=== PATIENT | male | born 1965 | race Caucasian/White ===

== ENCOUNTER 2021-03-30 04:16 | Emergency (ER) | payer SELFPAY ==
[~2021-03-30] VITALS: Ht 188 cm; Wt 139.0 kg
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
[2021-03-30] MEDS ORDERED: IV RINGERS SOLUTION,LACTATED 1,000 ML IV SCH (05:00)
[2021-03-30] MEDS ORDERED: DIPH,PERTUSS(ACELL),TET VAC/PF 0.5 ML SYRINGE. VAX IM ONE (05:00)
--- NOTE | 2021-03-30 05:00 | EKG ---
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
[2021-03-30] MEDS ORDERED: CONTRAST GIVEN. MC PRN (05:15)
[2021-03-30] MEDS ORDERED: IOHEXOL 300 MG/ML 75 ML VIAL. IV ONE (05:30)
[2021-03-30 05:39] LABS: BASO % 0 % (0-3); EOS % 0 % (0-3); HEMATOCRIT 37.7 % (39.0-53.0); HEMOGLOBIN 12.5 g/dL (13.0-17.5); LYMPH % 9 % (24-48); MEAN CORPUSCULAR HEMOGLOBIN 33 pg (25-35); MEAN CORPUSCULAR HGB CONC 33 g/dL (31-37); MEAN CORPUSCULAR VOLUME 99 fL (79-100); MONO % 9 % (0-9); NEUT # 9.3 x10^3uL (1.8-7.7); NEUT % 82 % (31-73); PLATELET COUNT 260 x10^3/uL (140-400); RED BLOOD COUNT 3.82 x10^6/uL (4.30-5.70); RED CELL DISTRIBUTION WIDTH 12.9 % (11.5-14.5); WHITE BLOOD COUNT 11.3 x10^3/uL (4.0-11.0)
[2021-03-30 05:57] LABS: CALCIUM 8.7 mg/dL (8.5-10.1); CREATININE 1.9 mg/dL (0.7-1.3); GFR 36.7; POTASSIUM 4.3 mmol/L (3.5-5.1)
[2021-03-30 06:12] LABS: ALBUMIN 3.8 g/dL (3.4-5.0); DIRECT BILIRUBIN 0.1 mg/dL (0.0-0.2); MAGNESIUM 2.5 mg/dL (1.8-2.4); TOTAL BILIRUBIN 0.2 mg/dL (0.2-1.0); TOTAL PROTEIN 7.3 g/dL (6.4-8.2)
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
[2021-03-30] MEDS ORDERED: HYDR-2155 PO (08:01)
[2021-03-30 08:23] VITALS: BP 145/90
[2021-03-30 08:29] LABS: BARBITURATES NEG (NEG); BENZODIAZEPINES NEG (NEG); CANNABINOIDS POS (NEG); COCAINE NEG (NEG); METHADONE NEG (NEG); OPIATES NEG (NEG); PHENCYCLIDINE NEG (NEG)
[2021-03-30 08:32] LABS: BACTERIA,URINE 0 /HPF (0-FEW); BILIRUBIN,URINE NEG (NEG); CLARITY,URINE CLEAR; COLOR,URINE YELLOW; GLUCOSE,URINE NEG (NEG); GRANULAR CASTS,URINE OCC /HPF; HYALINE CASTS, URINE OCC /HPF; NITRITE,URINE NEG (NEG); RBC,URINE OCC /HPF (0-2); SQUAMOUS EPITHELIAL CELL,UR FEW /LPF; UROBILINOGEN,URINE 0.2 mg/dL (0.2 mg/dL); WBC,URINE OCC /HPF (0-4)
[2021-03-30 08:37] LABS: AMPHETAMINE/METHAMPHETAMINE NEG (NEG)
== END 2021-03-30 08:23 | disposition home or self-care (01) ==
LOC: ER 04:16
DX: S42.021A Displaced fracture of shaft of right clavicle, initial encounter for closed fracture (principal); S22.41XA Multiple fractures of ribs, right side, initial encounter for closed fracture; S43.084A Other dislocation of right shoulder joint, initial encounter; S00.81XA Abrasion of other part of head, initial encounter; K57.30 Diverticulosis of large intestine without perforation or abscess without bleeding; F10.10 Alcohol abuse, uncomplicated; I10 Essential (primary) hypertension; Y90.5 Blood alcohol level of 100-119 mg/100 ml; V86.95XA Unspecified occupant of 3- or 4- wheeled all-terrain vehicle (ATV) injured in nontraffic accident, initial encounter; Y93.89 Activity, other specified; Y92.89 Other specified places as the place of occurrence of the external cause; Y99.8 Other external cause status
CPT/HCPCS: 29105; 36415; 70450; 71045; 71260; 72125; 73030; 74177; 80048; 80076; 80307; 81001; 82150; 82550; 83690; 83735; 83880; 84443; 84484; 85025; 85379; 85610; 85730; 90471; 90715; 93005; 96361; 96374; 96375; 99285; G0480; J3010; J7120; Q9967